=== PATIENT | female | born 1985 | race Caucasian/White ===

== ENCOUNTER 2017-05-30 07:37 | Emergency (ER) | payer MEDICAID ==
[~2017-05-30] VITALS: Ht 167.6 cm; Wt 80.0 kg
[~2017-05-30 07:37] MED LIST: OXYC1SOL5 PO; RANI150 PO
[2017-05-30 07:38] VITALS: BP 147/97; PULSE 111; RESP 14; TEMP 99; O2SAT 95
[2017-05-30] MEDS ORDERED: IOHEXOL 350 MG/ML 10 ML VIAL (for RAD DIAG) IVCONTRAST ONE (07:38)
[2017-05-30] MEDS ORDERED: SUCR1TAB PO (07:49)
[2017-05-30] MEDS ORDERED: OMEP20TA PO (07:49)
[2017-05-30] MEDS ORDERED: SODIUM CHLORIDE 0.9% FLUSH 10 ML FLUSH IV FLUSH PRN (08:00)
--- NOTE | 2017-05-30 08:07 | PD ---
HPI Chief Complaint: GI Complaint Time Seen by Provider: 08:04 Travel History International Travel<30 days: No Contact w/Intl Traveler<30days: No Traveled to known affect area: No History of Present Illness HPI 31-year-old female patient with history of no significant past issues, presents to the ER today with nausea, vomiting, diarrhea starting yesterday. She states she has been having abdominal cramping pains which is more in the lower abdomen. Pain is currently measured a 9 out of 10. She denies any fevers, blood in the stools, or other issues. She is also not know of any sick contacts , bad food exposure, denies trouble. Modifying Factors: None Associated Signs & Symptoms: Abdominal pains, nausea, vomiting since yesterday Risk Factors: None PFSH Past Medical History Anemia: Yes Depression: Yes Cancer: No Cardiovascular Problems: No Diabetes: No Gastrointestinal Disorders: Yes GERD: Yes Glaucoma: No Hepatitis: No Hiatal Hernia: No Hypertension: No Respiratory: No Thyroid Disease: No Tetanus Vaccination: < 5 Years ?: Not LMP: 05/27/17 : 1 Para: 1 Past Surgical History Section: Yes Other Surgery: Yes Social History Alcohol Use: Yes (OCCASSIONAL) Tobacco Use: Yes (OCCASSIONAL) Substance Use: Yes (MARIJUANA) Allergies-Medications (Allergen,Severity, Reaction): Coded Allergies: No Known Allergies (Verified , 05/30/17) Reported Meds & Prescriptions Reported Meds & Active Scripts Active Reported Omeprazole 20 Mg Tab 20 Mg PO DAILY Sucralfate 1 Gram Tab 1 Gm PO TID on empty stomach Review of Systems Except as stated in HPI: all other systems reviewed are Neg Physical Exam Narrative GENERAL: Well-developed young white female patient currently in moderate distress. Awake and oriented 3. SKIN: Focused skin assessment warm/dry. HEAD: Atraumatic. Normocephalic. EYES: Pupils equal and round. No scleral icterus. No injection or drainage. ENT: No nasal bleeding or discharge. Mucous membranes pink and moist. NECK: Trachea midline. No JVD. CARDIOVASCULAR: Regular rate and rhythm. No murmur appreciated. RESPIRATORY: No accessory muscle use. Clear to auscultation. Breath sounds equal bilaterally. GASTROINTESTINAL: Abdomen soft, diffuse abdominal tenderness without guarding or rebound, nondistended. Hepatic and splenic margins not palpable. MUSCULOSKELETAL: No obvious deformities. No clubbing. No cyanosis. No edema. NEUROLOGICAL: Awake and alert. No obvious cranial nerve deficits. Motor grossly within normal limits. Normal speech. PSYCHIATRIC: Appropriate mood and affect; insight and judgment normal. Data Data Last Documented VS Vital Signs Date Time Temp Pulse Resp B/P (MAP) Pulse Ox O2 Delivery O2 Flow Rate FiO2 05/30/17 08:24 99 05/30/17 07:38 99.0 111 14 Orders Orders Complete Blood Count With Diff (05/30/17 07:59) Comprehensive Metabolic Panel (05/30/17 07:59) Lipase (05/30/17 07:59) Urinalysis - C+S If Indicated (05/30/17 07:59) Iv Access Insert/Monitor (05/30/17 07:59) Ecg Monitoring (05/30/17:59) Oximetry (05/30/17 07:59) Sodium Chloride 0.9% Flush (Ns Flush) (05/30/17 08:00) Ed Urine Pregnancytest Poc (05/30/17 07:59) Sodium Chlor 0.9% 1000 Ml Inj (Ns 1000 M (05/30/17 08:15) Dicyclomine Inj (Bentyl Inj) (05/30/17 08:15) Ondansetron Inj (Zofran Inj) (05/30/17 08:15) Morphine Inj (Morphine Inj) (05/30/17 09:00) Ct Abd/Pel W Iv Contrast(Rout) (05/30/17 09:18) Urine Culture (05/30/17 08:00) Iohexol 350 Inj (Omnipaque 350 Inj) (05/30/17 07:38) Labs Laboratory Tests Test 05/30/17 08:00 05/30/17 08:05 Urine Color YELLOW Urine Turbidity HAZY Urine pH 6.0 Urine Specific [place] 1.030 Urine Protein 30 mg/dL Urine Glucose (UA) NEG mg/dL Urine Ketones 10 mg/dL Urine Occult Blood LARGE Urine Nitrite NEG Urine Bilirubin NEG Urine Urobilinogen LESS THAN 2.0 MG/DL Urine Leukocyte Esterase TRACE Urine RBC 42 /hpf Urine WBC 45 /hpf Urine Squamous Epithelial Cells 1 /hpf Urine Bacteria FEW /hpf Urine Mucus FEW /lpf Microscopic Urinalysis Comment CULTURE INDICATED White Blood Count 18.8 TH/MM3 Red Blood Count 4.65 MIL/MM3 Hemoglobin 13.7 GM/DL Hematocrit 41.3 % Mean Corpuscular Volume 88.9 FL Mean Corpuscular Hemoglobin 29.5 PG Mean Corpuscular Hemoglobin Concent 33.2 % Red Cell Distribution Width 12.8 % Platelet Count 155 TH/MM3 Mean Platelet Volume 8.2 FL Neutrophils (%) (Auto) 95.0 % Lymphocytes (%) (Auto) 3.4 % Monocytes (%) (Auto) 1.5 % Eosinophils (%) (Auto) 0.0 % Basophils (%) (Auto) 0.1 % Neutrophils # (Auto) 17.9 TH/MM3 Lymphocytes # (Auto) 0.6 TH/MM3 Monocytes # (Auto) 0.3 TH/MM3 Eosinophils # (Auto) 0.0 TH/MM3 Basophils # (Auto) 0.0 TH/MM3 CBC Comment DIFF FINAL Differential Comment Blood Urea Nitrogen 9 MG/DL Creatinine 0.61 MG/DL Random Glucose 116 MG/DL Total Protein 7.7 GM/DL Albumin 3.8 GM/DL Calcium Level 9.4 MG/DL Alkaline Phosphatase 56 U/L Aspartate Amino Transf (AST/SGOT) 15 U/L Alanine Aminotransferase (ALT/SGPT) 25 U/L Total Bilirubin 1.5 MG/DL Sodium Level 133 MEQ/L Potassium Level 3.0 MEQ/L Chloride Level 98 MEQ/L Carbon Dioxide Level 21.8 MEQ/L Anion Gap 13 MEQ/L Estimat Glomerular Filtration Rate 114 ML/MIN Lipase 41 U/L MDM Medical Decision Making Medical Screen Exam Complete: Yes Emergency Medical Condition: Yes Medical Record Reviewed: Yes Interpretation(s) Laboratory Tests Test 05/30/17 08:00 05/30/17 08:05 Urine Turbidity HAZY (CLEAR) Urine Protein 30 mg/dL (NEG-TRACE) Urine Ketones 10 mg/dL (NEG) Urine Occult Blood LARGE (NEG) Urine Leukocyte Esterase TRACE (NEG) Urine RBC 42 /hpf (0-3) Urine WBC 45 /hpf (0-5) Urine Bacteria FEW /hpf (NONE) Urine Mucus FEW /lpf (OCC) White Blood Count 18.8 TH/MM3 (4.0-11.0) Neutrophils (%) (Auto) 95.0 % (16.0-70.0) Lymphocytes (%) (Auto) 3.4 % (9.0-44.0) Neutrophils # (Auto) 17.9 TH/MM3 (1.8-7.7) Lymphocytes # (Auto) 0.6 TH/MM3 (1.0-4.8) Random Glucose 116 MG/DL (74-106) Total Bilirubin 1.5 MG/DL (0.2-1.0) Sodium Level 133 MEQ/L (136-145) Potassium Level 3.0 MEQ/L (3.5-5.1) Lipase 41 U/L (73-393) Last 24 hours Impressions Abdomen/Pelvis CT 05/30/17 0918 Signed Impressions: Service Date/Time: Tuesday, May 30, 2017 10:58 - CONCLUSION: 1. No acute abnormality to explain the patient's pain. 2. Prior cholecystectomy. 3. IUD. Saurabh Tom Jr., MD Differential Diagnosis Nausea, vomiting, diarrhea, abdominal pains: Gastroenteritis versus dehydration versus metabolic issues Narrative Course Lab work shows hypokalemia. She has significant leukocytosis as well. CAT scan was done to evaluate for any further intra-abdominal processes. It did not show significant intra-abdominal processes at that time. Patient was given IV fluids, pain medications and nausea medications in the ER. She had no further vomiting episodes in the ER. At this point, I do not see any signs of other acute processes and my plan would be to release her with her symptomatic relief for nausea and vomiting as well as potassium for her hypokalemia. Return for any worsening in symptoms as needed. The plan has been discussed with her and she states understanding. Diagnosis Primary Impression: Nausea and vomiting Additional Impressions: Hypokalemia UTI (urinary tract infection) Med/Other Pt SpecificInfo: Prescription(s) given Scripts Potassium Chloride ER (K-Tab) 20 Meq Tab 40 MEQ PO DAILY for Electrolyte Replacement, #10 TAB 0 Refills Prov: Edmar Cesar MD 05/30/17 Ondansetron Odt (Zofran Odt) 4 Mg Tab 4 MG SL Q6HR Y for Nausea/Vomiting, #7 TAB 0 Refills Prov: Edmar Cesar MD 05/30/17 Ciprofloxacin (Cipro) 500 Mg Tab 500 MG PO BID for Infection for 7 Days, #14 TAB 0 Refills Prov: Edmar Cesar MD 05/30/17 Disposition: 01 DISCHARGE HOME Condition: Stable Edmar Cesar MD May 30, 2017 08:07
[2017-05-30] MEDS ORDERED: ONDANSETRON HCL 4 MG/2 ML VIAL IV PUSH ONE (08:15)
[2017-05-30] MEDS ORDERED: DICYCLOMINE HCL 20 MG/2 ML VIAL IM ONE (08:15)
[2017-05-30] MEDS ORDERED: SODIUM CHLOR 0.9% 1000 ML INJ 1,000 ML IV ONE (08:15)
[2017-05-30 08:24] VITALS: O2SAT 99
[2017-05-30] MEDS ORDERED: MORPHINE SULFATE 2 MG/ML INJ IV PUSH ONE (09:00)
[2017-05-30 09:02] LABS: AUTOMATED NEUTROPHIL # 17.9 TH/MM3 (1.8-7.7); BASOPHIL % 0.1 % (0.0-2.0); HEMATOCRIT 41.3 % (35.0-46.0); HEMO FLAGS DIFF FINAL; LYMPH % 3.4 % (9.0-44.0); LYMPHOCYTE # 0.6 TH/MM3 (1.0-4.8); MEAN CELL VOLUME 88.9 FL (80.0-100.0); MEAN CORPUSCULAR HEMOGLOBIN 29.5 PG (27.0-34.0); MEAN CORPUSCULAR HGB CONC 33.2 % (32.0-36.0); MONO % 1.5 % (0.0-8.0); PLATELET COUNT 155 TH/MM3 (150-450); RED BLOOD COUNT 4.65 MIL/MM3 (4.00-5.30); RED CELL DISTRIBUTION WIDTH 12.8 % (11.6-17.2); WHITE BLOOD COUNT 18.8 TH/MM3 (4.0-11.0)
[2017-05-30 09:16] LABS: ANION GAP 13 MEQ/L (5-15); AST (GOT) 15 U/L (15-37); BICARBONATE 21.8 MEQ/L (21.0-32.0); BLOOD UREA NITROGEN 9 MG/DL (7-18); CHLORIDE 98 MEQ/L (98-107); GLOMERULAR FILTRATION RATE 114 ML/MIN (>89); SODIUM (NA) 133 MEQ/L (136-145)
[2017-05-30 09:17] LABS: ALT (GPT) 25 U/L (10-53)
[2017-05-30 09:20] LABS: ALKALINE PHOSPHATASE 56 U/L (45-117); TOTAL BILIRUBIN ADULT 1.5 MG/DL (0.2-1.0)
[2017-05-30 09:35] LABS: BACTERIA, URINE FEW /hpf; BLOOD, URINE LARGE (NEG); COMMENT (UR) CULTURE INDICATED; CULTURE IF INDICATED CULTURE INDICATED; GLUCOSE,URINE NEG (NEG); KETONE, URINE 10 mg/dL (NEG); MUCUS URINE FEW /lpf (OCC); NITRITE,URINE NEG (NEG); SQUAMOUS EPITHELIAL CELL URINE 1 /hpf (0-5); URINE COLOR YELLOW (YELLW/STRAW)
--- NOTE | 2017-05-30 11:24 | RADRPT ---
EXAM DATE/TIME: 05/30/2017 10:58 [facility] COMPARISON: No previous studies available for comparison. INDICATIONS : Diffuse abdomen pain nausea,vomiting,diarrhea IV CONTRAST: 90 cc Omnipaque 350 (iohexol) IV ORAL CONTRAST: No oral contrast ingested. RADIATION DOSE: 10.49 CTDIvol (mGy) MEDICAL HISTORY : None SURGICAL HISTORY : None. ENCOUNTER: Initial ACUITY: 1 day PAIN SCALE: 8/10 LOCATION: Abdomen TECHNIQUE: Volumetric scanning of the abdomen and pelvis was performed. Using automated exposure control and ad justment of the mA and/or kV according to patient size, radiation dose was kept as low as reasonably achievable to obtain optimal diagnostic quality images. DICOM format image data is available electro nically for review and comparison. FINDINGS: LOWER LUNGS: The visualized lower lungs are clear. LIVER: Homogeneous density without lesion. There is no dilation of the biliary tree. The gallbladder is isabelle gically absent. SPLEEN: Normal size without lesion. PANCREAS: Within normal limits. KIDNEYS: Normal in size and shape. There is no mass, stone or hydronephrosis. A 1 cm cortical cyst is seen in volving the upper pole on the right. ADRENAL GLANDS: Within normal limits. VASCULAR: There is no aortic aneurysm. BOWEL/MESENTERY: The stomach, small bowel, and colon demonstrate no acute abnormality. There is no free intraperitone al air or fluid. ABDOMINAL WALL: Within normal limits. RETROPERITONEUM: There is no lymphadenopathy. BLADDER: No wall thickening or mass. REPRODUCTIVE: Within normal limits. An IUD is noted. INGUINAL: There is no lymphadenopathy or hernia. MUSCULOSKELETAL: Within normal limits for patient age. CONCLUSION: 1. No acute abnormality to explain the patient's pain. 2. Prior cholecystectomy. 3. IUD. Saurabh Tom Jr., MD on May 30, 2017 at 11:19 Board Certified Radiologist. This report was verified electronically.
[2017-05-30] MEDS ORDERED: ZOFR4TAB3 SL (12:03)
[2017-05-30] MEDS ORDERED: POTA1TAB4 PO (12:03)
[2017-05-30] MEDS ORDERED: CIPR-9 PO (12:03)
== END 2017-05-30 12:34 | disposition home or self-care (01) ==
LOC: NEPC 07:37
DX: R11.2 Nausea with vomiting, unspecified (principal); E87.6 Hypokalemia; N39.0 Urinary tract infection, site not specified; K21.9 Gastro-esophageal reflux disease without esophagitis; R19.7 Diarrhea, unspecified
CPT/HCPCS: 74177; 80053; 81001; 83690; 84703; 85025; 87086; 96361; 96372; 96374; 96375; 99285; J0500; J2270; J2405; J7030; Q9967

== ENCOUNTER 2017-06-01 04:08 | Emergency (ER) | payer MEDICAID ==
[~2017-06-01] VITALS: Ht 167.6 cm; Wt 76.2 kg
[~2017-06-01 04:08] MED LIST changes: +CIPR-9 PO; +OMEP20TA PO; +POTA1TAB4 PO; +SUCR1TAB PO; +ZOFR4TAB3 SL
[2017-06-01 04:15] VITALS: BP 153/97; PULSE 74; RESP 18; TEMP 99; O2SAT 97
[2017-06-01] MEDS ORDERED: SODIUM CHLOR 0.9% 1000 ML INJ 1,000 ML IV SCH (04:27)
[2017-06-01] MEDS ORDERED: ONDANSETRON HCL 4 MG/2 ML VIAL IVP ONE (04:30)
[2017-06-01] MEDS ORDERED: SODIUM CHLORIDE 0.9% FLUSH 10 ML FLUSH IV FLUSH PRN (04:30)
[2017-06-01] MEDS ORDERED: METOCLOPRAMIDE HCL 10 MG/2 ML VIAL IV PUSH ONE (04:45)
[2017-06-01 04:48] LABS: AUTOMATED NEUTROPHIL # 14.9 TH/MM3 (1.8-7.7); BASOPHIL % 0.2 % (0.0-2.0); EOSINOPHIL # 0.3 TH/MM3 (0-0.4); EOSINOPHIL % 1.7 % (0.0-4.0); HEMATOCRIT 41.6 % (35.0-46.0); HEMO FLAGS DIFF FINAL; LYMPH % 7.5 % (9.0-44.0); LYMPHOCYTE # 1.2 TH/MM3 (1.0-4.8); MEAN CELL VOLUME 86.8 FL (80.0-100.0); MEAN CORPUSCULAR HEMOGLOBIN 28.5 PG (27.0-34.0); MEAN CORPUSCULAR HGB CONC 32.9 % (32.0-36.0); NEUT % 89.6 % (16.0-70.0); PLATELET COUNT 202 TH/MM3 (150-450); RED CELL DISTRIBUTION WIDTH 12.1 % (11.6-17.2); WHITE BLOOD COUNT 16.6 TH/MM3 (4.0-11.0)
[2017-06-01 05:00] VITALS: BP 152/98; PULSE 64; RESP 18; O2SAT 98
[2017-06-01 05:13] LABS: ALKALINE PHOSPHATASE 71 U/L (45-117); ALT (GPT) 19 U/L (10-53); ANION GAP 10 MEQ/L (5-15); AST (GOT) 9 U/L (15-37); BICARBONATE 25.4 MEQ/L (21.0-32.0); BLOOD UREA NITROGEN 11 MG/DL (7-18); CHLORIDE 96 MEQ/L (98-107); GLOMERULAR FILTRATION RATE 102 ML/MIN (>89); SODIUM (NA) 131 MEQ/L (136-145); TOTAL BILIRUBIN ADULT 0.5 MG/DL (0.2-1.0)
[2017-06-01] MEDS ORDERED: PROMETHAZINE INJ 25 MG/ML VIAL IM ONE (05:15)
[2017-06-01] MEDS ORDERED: MORPHINE SULFATE 4 MG/ML INJ IV PUSH ONE (05:15)
[2017-06-01 05:16] LABS: POTASSIUM 2.8 MEQ/L (3.5-5.1)
--- NOTE | 2017-06-01 05:23 | PD ---
HPI Chief Complaint: GI Complaint Time Seen by Provider: 04:44 Travel History International Travel<30 days: No Contact w/Intl Traveler<30days: No Traveled to known affect area: No History of Present Illness HPI 31-year-old female presents to the emergency department by private transportation for complaint of ongoing nausea vomiting diarrhea and abdominal pain. Patient also reports fever 102 F. Patient states symptoms have been present since Sunday. Patient states symptoms began as lower abdominal discomfort and developed subsequently nausea vomiting and diarrhea. Patient was seen in the emergency department on Sunday and had lab work performed as well as a CT abdomen and pelvis which revealed no acute intra-abdominal abnormalities. Patient was identified at that time to have abnormal urinalysis and started on Cipro Floxin for urinary tract infection. Patient denies headache sore throat sinus pressure drainage earache neck pain cough congestion shortness of breath chest pain dysuria frequency urgency maturity flank pain and states that vomiting is not associated with coffee-ground emesis hematemesis and stool is not associated melena or hematochezia. Patient denies any dietary indiscretion or well water ingestion or foreign travel. Patient denies other concerns or complaints at this time. Patient rates overall body aches and pains, takes any PFSH Past Medical History Narrative Medical Anemia depression GERD cholecystectomy; tobacco use alcohol use marijuana use and: Nursing notes reviewed Anemia: Yes Depression: Yes Cancer: No Cardiovascular Problems: No Diabetes: No Diminished Hearing: No Gastrointestinal Disorders: Yes GERD: Yes Glaucoma: No Hepatitis: No Hiatal Hernia: No Hypertension: No Respiratory: No Thyroid Disease: No Tetanus Vaccination: < 5 Years Influenza Vaccination: No ?: Not LMP: 05/31/17 : 1 Para: 1 Past Surgical History Section: Yes Cholecystectomy: Yes Other Surgery: Yes Social History Alcohol Use: Yes (OCCASSIONAL) Tobacco Use: Yes (OCCASSIONAL) Substance Use: Yes (MARIJUANA) Allergies-Medications (Allergen,Severity, Reaction): Coded Allergies: No Known Allergies (Verified , 06/01/17) Reported Meds & Prescriptions Reported Meds & Active Scripts Active Zofran Odt (Ondansetron Odt) 4 Mg Tab 4 Mg SL Q6HR PRN Cipro (Ciprofloxacin HCl) 500 Mg Tab 500 Mg PO BID 7 Days Reported Omeprazole 20 Mg Tab 20 Mg PO DAILY Sucralfate 1 Gram Tab 1 Gm PO TID on empty stomach Review of Systems Except as stated in HPI: all other systems reviewed are Neg General / Constitutional: Positive: Fever, No: Chills HENT: No: Sore Throat, Congestion Cardiovascular: No: Chest Pain or Discomfort Respiratory: No: Shortness of Breath Gastrointestinal: Positive: Nausea, Vomiting, Diarrhea, Abdominal Pain, No: Hematemesis, Hematochezia Genitourinary: No: Urgency, Frequency, Dysuria, Flank Pain Musculoskeletal: No: Myalgias, Arthralgias Skin: No Rash Neurologic: No: Weakness, Dizziness Psychiatric: No: Anxiety Hematologic/Lymphatic: No: Lymph Node Enlargement Physical Exam Narrative GENERAL: Well-developed well-nourished female in no acute distress no respiratory distress SKIN: Warm and dry. HEAD: Normocephalic. EYES: No scleral icterus. No injection or drainage. NECK: Supple, trachea midline. No JVD or lymphadenopathy. CARDIOVASCULAR: Regular rate and rhythm without murmurs, gallops, or rubs. RESPIRATORY: Breath sounds equal bilaterally. No accessory muscle use. GASTROINTESTINAL: Abdomen soft, mild suprapubic tenderness to deep palpation without guarding or rebound, nondistended. MUSCULOSKELETAL: No cyanosis, or edema. BACK: Nontender without obvious deformity. No CVA tenderness. Data Data Last Documented VS Vital Signs Date Time Temp Pulse Resp B/P (MAP) Pulse Ox O2 Delivery O2 Flow Rate FiO2 06/01/17 06:08 18 06/01/17 05:00 98 Room Air 06/01/17 04:15 99.0 74 Orders Orders Complete Blood Count With Diff (06/01/17 04:27) Comprehensive Metabolic Panel (06/01/17 04:27) Lipase (06/01/17 04:27) Iv Access Insert/Monitor (06/01/17 04:27) Ecg Monitoring (06/01/17 04:27) Oximetry (06/01/17 04:27) Ondansetron Inj (Zofran Inj) (06/01/17 04:30) Sodium Chlor 0.9% 1000 Ml Inj (Ns 1000 M (06/01/17 04:27) Sodium Chloride 0.9% Flush (Ns Flush) (06/01/17 04:30) Electrocardiogram (06/01/17 04:27) Ed Urine Pregnancytest Poc (06/01/17 04:27) Metoclopramide Inj (Reglan Inj) (06/01/17 04:45) Blood Culture (06/01/17 05:10) Lactic Acid (06/01/17 05:10) Promethazine Inj (Phenergan Inj) (06/01/17 05:15) Morphine Inj (Morphine Inj) (06/01/17 05:15) Potassium Chlor 10 Meq Premix (Kcl 10 Me (06/01/17 05:30) Potassium Chloride (Kcl) (06/01/17 05:30) Ceftriaxone Inj (Rocephin Inj) (06/01/17 05:30) Labs Laboratory Tests Test 06/01/17 04:30 06/01/17 05:15 White Blood Count 16.6 TH/MM3 Red Blood Count 4.80 MIL/MM3 Hemoglobin 13.7 GM/DL Hematocrit 41.6 % Mean Corpuscular Volume 86.8 FL Mean Corpuscular Hemoglobin 28.5 PG Mean Corpuscular Hemoglobin Concent 32.9 % Red Cell Distribution Width 12.1 % Platelet Count 202 TH/MM3 Mean Platelet Volume 8.3 FL Neutrophils (%) (Auto) 89.6 % Lymphocytes (%) (Auto) 7.5 % Monocytes (%) (Auto) 1.0 % Eosinophils (%) (Auto) 1.7 % Basophils (%) (Auto) 0.2 % Neutrophils # (Auto) 14.9 TH/MM3 Lymphocytes # (Auto) 1.2 TH/MM3 Monocytes # (Auto) 0.2 TH/MM3 Eosinophils # (Auto) 0.3 TH/MM3 Basophils # (Auto) 0.0 TH/MM3 CBC Comment DIFF FINAL Differential Comment Blood Urea Nitrogen 11 MG/DL Creatinine 0.67 MG/DL Random Glucose 99 MG/DL Total Protein 8.2 GM/DL Albumin 3.3 GM/DL Calcium Level 9.2 MG/DL Alkaline Phosphatase 71 U/L Aspartate Amino Transf (AST/SGOT) 9 U/L Alanine Aminotransferase (ALT/SGPT) 19 U/L Total Bilirubin 0.5 MG/DL Sodium Level 131 MEQ/L Potassium Level 2.8 MEQ/L Chloride Level 96 MEQ/L Carbon Dioxide Level 25.4 MEQ/L Anion Gap 10 MEQ/L Estimat Glomerular Filtration Rate 102 ML/MIN Lipase 107 U/L Lactic Acid Level 1.1 mmol/L [facility] Medical Decision Making Medical Screen Exam Complete: Yes Emergency Medical Condition: Yes Medical Record Reviewed: Yes Differential Diagnosis Vomiting, gastroenteritis, dehydration, electrolyte disturbance, medication sensitivities/intolerance, noncompliance, intractable nausea and vomiting Narrative Course Patient placed on school lunch monitor IV access obtained EKG performed sinus rhythm rate [address] elevation or injury pattern change noted patient is identified to have right ventricular conduction delay; patient administered normal saline 1 L bolus and Zofran 4 mg IV ordered however reports that she has already taken 2 doses of Zofran therefore Zofran canceled and Reglan 10 mg IV administered Patient with ongoing nausea and vomiting therefore Phenergan 25 mg IM administered Patient identified to have hypokalemia of 2.8 patient ordered 1 dose of KCl 10 mEq replacement IV piggyback as well as one-time dose of oral potassium 40 mEq CBC is automated differential total white cell count 16,600 with left shift however lactic acid is 1.1. She is afebrile in the emergency department without tachycardia or hypotension. At 5:55 AM patient resting comfortably no further nausea or vomiting patient lab values have shown evidence of improvement except for hypokalemia. Sepsis Criteria SIRS Criteria (2 or more): WBC > 99722, < 4000 or > 10% bands Diagnosis Primary Impression: Gastroenteritis Additional Impression: Hypokalemia Referrals: [facility] call for appointment Primary Care Physician 2 days Patient Instructions: Narcotic given in the ED, General Instructions Additional Instructions: Follow clear liquid diet for next 12-24 hours advance as tolerated to bland/ Ben diet then regular diet Increase potassium containing foods and beverages in dietary intake Monitor temperature every 4 hours with thermometer and take as needed acetaminophen/Tylenol every 4 hours for fever 100.4F or greater Take Phenergan as prescribed as needed for nausea or vomiting or for breakthrough nausea vomiting after Zofran Complete course of antibiotic as prescribed Return to the emergency department for any concerns or change in condition follow-up with primary care provider/was evaluated Med/Other Pt SpecificInfo: Prescription(s) given Disposition: 01 DISCHARGE HOME Condition: Stable Kiana Vee MD Jun 01, 2017 05:23
[2017-06-01] MEDS ORDERED: POTASSIUM CHLORIDE 20 MEQ CONTROLLED RELEASE TAB PO ONE (05:30)
[2017-06-01] MEDS ORDERED: POTASSIUM CHLOR 10 MEQ PREMIX 100 ML IV ONE (05:30)
[2017-06-01] MEDS ORDERED: cefTRIAXone INJ 1,000 MG in SODIUM CHLORIDE 0.9% INJ 100 ML IV ONE (05:30)
[2017-06-01 05:45] VITALS: BP 146/89; PULSE 64; RESP 18; TEMP 99; O2SAT 96
[2017-06-01 06:45] VITALS: BP 127/74; PULSE 62; RESP 18; O2SAT 95
[2017-06-01] MEDS ORDERED: PROM25TA10 PO (07:16)
[2017-06-01 07:26] VITALS: BP 120/76; PULSE 62; RESP 16; O2SAT 100
--- NOTE | 2017-06-01 08:59 | EKG ---
Date Performed: 06/01/2017 Time Performed: 04:36:53 PTAGE: 31 years EKG: Sinus rhythm WITH SINUS ARRHYTHMIA POSSIBLE RIGHT VENTRICULAR CONDUCTION DELAY BORDERLINE ECG NO PREVIOUS TRACING DOCTOR: Servando Smith Interpretating Date/Time 06/01/2017 08:57:46
== END 2017-06-01 07:42 | disposition home or self-care (01) ==
LOC: PHED 04:08
DX: K52.9 Noninfective gastroenteritis and colitis, unspecified (principal); E87.6 Hypokalemia; D64.9 Anemia, unspecified; R94.31 Abnormal electrocardiogram [ECG] [EKG]; Z72.0 Tobacco use
CPT/HCPCS: 80053; 83605; 83690; 84703; 85025; 87040; 93005; 96361; 96365; 96367; 96372; 96375; 99284; J0696; J2270; J2550; J2765; J3480; J7030

== ENCOUNTER 2017-06-03 10:07 | Inpatient (IN) | payer MEDICAID ==
[~2017-06-03] VITALS: Ht 170.2 cm; Wt 83.1 kg
[~2017-06-03 10:07] MED LIST changes: -OXYC1SOL5 PO; -POTA1TAB4 PO; +PROM25TA10 PO; -RANI150 PO
[2017-06-03 10:14] VITALS: BP 167/89; PULSE 59; RESP 16; TEMP 98.6; O2SAT 100
[2017-06-03] MEDS ORDERED: diphenhydrAMINE HCL 50 MG/ML VIAL IV PUSH ONE (11:00)
[2017-06-03] MEDS ORDERED: SODIUM CHLOR 0.9% 1000 ML INJ 1,000 ML IV SCH (11:00)
[2017-06-03] MEDS ORDERED: PROCHLORPERAZINE INJ 10 MG/2 ML VIAL IV PUSH ONE (11:00)
[2017-06-03 11:02] LABS: AUTOMATED NEUTROPHIL # 8.6 TH/MM3 (1.8-7.7); BASOPHIL % 0.3 % (0.0-2.0); EOSINOPHIL # 0.1 TH/MM3 (0-0.4); EOSINOPHIL % 1.3 % (0.0-4.0); HEMATOCRIT 38.8 % (35.0-46.0); LYMPH % 11.5 % (9.0-44.0); LYMPHOCYTE # 1.2 TH/MM3 (1.0-4.8); MEAN CELL VOLUME 87.4 FL (80.0-100.0); MEAN CORPUSCULAR HEMOGLOBIN 29.4 PG (27.0-34.0); MEAN CORPUSCULAR HGB CONC 33.7 % (32.0-36.0); MONO % 6.1 % (0.0-8.0); NEUT % 80.8 % (16.0-70.0); PLATELET COUNT 254 TH/MM3 (150-450); RED BLOOD COUNT 4.45 MIL/MM3 (4.00-5.30); RED CELL DISTRIBUTION WIDTH 12.1 % (11.6-17.2); WHITE BLOOD COUNT 10.6 TH/MM3 (4.0-11.0)
[2017-06-03 11:05] VITALS: BP 148/73; PULSE 62; RESP 16; O2SAT 99
[2017-06-03 11:05] LABS: HEMO FLAGS AUTO DIFF
[2017-06-03 11:11] LABS: CHLORIDE 103 MEQ/L (98-107); POTASSIUM 3.1 MEQ/L (3.5-5.1); SODIUM (NA) 141 MEQ/L (136-145)
[2017-06-03 11:15] LABS: ANION GAP 7 MEQ/L (5-15); BICARBONATE 31.1 MEQ/L (21.0-32.0); BLOOD UREA NITROGEN 8 MG/DL (7-18)
[2017-06-03 11:18] LABS: ALT (GPT) 20 U/L (10-53); AST (GOT) 12 U/L (15-37); GLOMERULAR FILTRATION RATE 112 ML/MIN (>89)
[2017-06-03 11:19] LABS: TOTAL BILIRUBIN ADULT 0.4 MG/DL (0.2-1.0)
[2017-06-03 11:21] LABS: ALKALINE PHOSPHATASE 62 U/L (45-117)
[2017-06-03] MEDS ORDERED: ONDANSETRON HCL 4 MG/2 ML VIAL IV ONE (11:30)
[2017-06-03 11:46] LABS: SCAN/DIFF AUTO DIFF CONFIRMED
--- NOTE | 2017-06-03 12:05 | PD ---
HPI Chief Complaint: GI Complaint Time Seen by Provider: 10:36 Travel History International Travel<30 days: No Contact w/Intl Traveler<30days: No Traveled to known affect area: No History of Present Illness HPI So 31 year-old woman who presents to the emergency department with nausea vomiting abdominal pain. She has a history of chronic abdominal pain with episodic nausea vomiting. She had her gallbladder taken out in February of this year and so she's been better since then. She's been seen twice earlier in the emergency department this week for recurrent symptoms. She was endorsing fever without point has had leukocytosis on both occasions. She had a negative CT the abdomen and pelvis. She had a urine that showed some pyuria and she's been treated for urinary tract infection with Cipro but her culture grew mixed gram- positive's. She's also had a , no other abdominal surgeries. She's been feeling more weak and lightheaded. She did have some low potassium on her more recent labs. She does not have a GI doctor. She uses Zofran and Phenergan as needed for nausea or vomiting. No other complaints. She does use marijuana daily, and has investigated marijuana hyperemesis syndrome as an etiology for her symptoms was a 16 with absence of symptoms not resolved. History Past Medical History Narrative Medical Chronic abdominal pain GERD Marijuana use : 1 Para: 1 Social History Alcohol Use: Yes (OCCASSIONAL) Tobacco Use: Yes (OCCASSIONAL) Allergies-Medications (Allergen,Severity, Reaction): Coded Allergies: No Known Allergies (Verified , 06/03/17) Reported Meds & Prescriptions Reported Meds & Active Scripts Active Phenergan (Promethazine HCl) 25 Mg Tablet 25 Mg PO Q6H PRN Zofran Odt (Ondansetron Odt) 4 Mg Tab 4 Mg SL Q6HR PRN Cipro (Ciprofloxacin HCl) 500 Mg Tab 500 Mg PO BID 7 Days Reported Omeprazole 20 Mg Tab 20 Mg PO DAILY Sucralfate 1 Gram Tab 1 Gm PO TID on empty stomach Review of Systems Except as stated in HPI: all other systems reviewed are Neg Physical Exam Narrative GENERAL: 31 year-old woman, frequent retching. Appears uncomfortable nontoxic. SKIN: Focused skin assessment warm/dry. HEAD: Atraumatic. Normocephalic. EYES: Pupils equal and round. No scleral icterus. No injection or drainage. ENT: No nasal bleeding or discharge. Mucous membranes pink and moist. NECK: Trachea midline. No JVD. CARDIOVASCULAR: Regular rate and rhythm. No murmur appreciated. RESPIRATORY: No accessory muscle use. Clear to auscultation. Breath sounds equal bilaterally. GASTROINTESTINAL: Abdomen is flat and soft. Moderate diffuse tenderness, no rebound or guarding. MUSCULOSKELETAL: No obvious deformities. No edema. NEUROLOGICAL: Awake and alert. No obvious cranial nerve deficits. Motor grossly within normal limits. Normal speech. PSYCHIATRIC: Appropriate mood and affect; insight and judgment normal. Data Data Last Documented VS Vital Signs Date Time Temp Pulse Resp B/P (MAP) Pulse Ox O2 Delivery O2 Flow Rate FiO2 06/03/17 12:30 16 06/03/17 12:15 51 185/89 (121) 100 Room Air 06/03/17 10:14 98.6 Orders Orders Complete Blood Count With Diff (06/03/17 10:49) Comprehensive Metabolic Panel (06/03/17 10:49) Lipase (06/03/17 10:49) Iv Access Insert/Monitor (06/03/17 10:49) Urinalysis - C+S If Indicated (06/03/17 10:49) Sodium Chlor 0.9% 1000 Ml Inj (Ns 1000 M (06/03/17 11:00) Prochlorperazine Inj (Compazine Inj) (06/03/17 11:00) Diphenhydramine Inj (Benadryl Inj) (06/03/17 11:00) Ondansetron Inj (Zofran Inj) (06/03/17 11:30) Ketorolac Inj (Toradol Inj) (06/03/17 12:30) Urine Culture (06/03/17 12:15) Ceftriaxone Inj (Rocephin Inj) (06/03/17 13:00) Urine Culture (06/03/17 12:49) Admit To Inpatient (06/03/17 ) Vital Signs (Adult) KAREN.Q4H (06/03/17 12:50) Activity Oob With Assistance (06/03/17 12:50) Sodium Chlor 0.45% 1000 Ml Inj (1/2 Ns 1 (06/03/17 12:50) Inpatient Certification (06/03/17 ) Admit Order (Ed Use Only) (06/03/17 ) Labs Laboratory Tests Test 06/03/17 10:30 06/03/17 12:15 White Blood Count 10.6 TH/MM3 Red Blood Count 4.45 MIL/MM3 Hemoglobin 13.1 GM/DL Hematocrit 38.8 % Mean Corpuscular Volume 87.4 FL Mean Corpuscular Hemoglobin 29.4 PG Mean Corpuscular Hemoglobin Concent 33.7 % Red Cell Distribution Width 12.1 % Platelet Count 254 TH/MM3 Mean Platelet Volume 7.7 FL Neutrophils (%) (Auto) 80.8 % Lymphocytes (%) (Auto) 11.5 % Monocytes (%) (Auto) 6.1 % Eosinophils (%) (Auto) 1.3 % Basophils (%) (Auto) 0.3 % Neutrophils # (Auto) 8.6 TH/MM3 Lymphocytes # (Auto) 1.2 TH/MM3 Monocytes # (Auto) 0.6 TH/MM3 Eosinophils # (Auto) 0.1 TH/MM3 Basophils # (Auto) 0.0 TH/MM3 CBC Comment AUTO DIFF Differential Comment AUTO DIFF CONFIRMED Blood Urea Nitrogen 8 MG/DL Creatinine 0.62 MG/DL Random Glucose 110 MG/DL Total Protein 7.5 GM/DL Albumin 3.1 GM/DL Calcium Level 8.7 MG/DL Alkaline Phosphatase 62 U/L Aspartate Amino Transf (AST/SGOT) 12 U/L Alanine Aminotransferase (ALT/SGPT) 20 U/L Total Bilirubin 0.4 MG/DL Sodium Level 141 MEQ/L Potassium Level 3.1 MEQ/L Chloride Level 103 MEQ/L Carbon Dioxide Level 31.1 MEQ/L Anion Gap 7 MEQ/L Estimat Glomerular Filtration Rate 112 ML/MIN Lipase 160 U/L Urine Collection Type CLEAN CATCH Urine Color ORANGE Urine Turbidity MOD Urine pH 5.5 Urine Specific [place] 1.024 Urine Protein 100 mg/dL Urine Glucose (UA) 100 mg/dL Urine Ketones NEG mg/dL Urine Occult Blood LARGE Urine Nitrite POS Urine Bilirubin NEG Urine Leukocyte Esterase TRACE Urine RBC 15-19 /hpf Urine WBC 9-14 /hpf Urine Squamous Epithelial Cells 6-8 /hpf Urine Calcium Oxalate Crystals MANY /hpf Urine Amorphous Sediment MOD Urine Bacteria FEW /hpf Microscopic Urinalysis Comment CULTURE INDICATED Urine Collection Time 1215 MDM Medical Decision Making Medical Screen Exam Complete: Yes Emergency Medical Condition: Yes Interpretation(s) LABS: CBC is unremarkable. CMP is unremarkable. Lipase is normal. UA was some hematuria and pyuria, positive nitrites. Differential Diagnosis Get her chronic abdominal pain, gastroenteritis, gastritis, marijuana hyperemesis syndrome, cyclic vomiting, IBD, IBS, other Narrative Course Medical decision making 31 year-old woman with acute on chronic abdominal pain with episodic nausea vomiting worse for the past week or so, reportedly recent fever leukocytosis to could suggest an infectious etiology however symptoms seem to be more persistent. She had negative CT imaging. UTI seems unlikely to be the cause of her symptoms. She is continuing Cipro. We'll recheck labs, IV fluids, antiemetics, reassess. FINAL: Intractable nausea vomiting. Unclear if her pyuria UTIs related or not. We'll plan on treatment. She still vomiting in the ED visit third ED visit for this. Will admit for supportive treatment. Diagnosis Primary Impression: Intractable nausea and vomiting Additional Impression: Pyuria Admitting Information Admitting Physician Requests: it Marlon Quiroga MD Jun 03, 2017 12:05
[2017-06-03 12:15] VITALS: BP 185/89; PULSE 51; RESP 16; O2SAT 100
[2017-06-03 12:18] LABS: BLOOD, URINE LARGE (NEG); GLUCOSE,URINE 100 mg/dL (NEG); KETONE, URINE NEG (NEG); NITRITE,URINE POS (NEG); PH, URINE 5.5 (5.0-8.5)
[2017-06-03 12:24] LABS: METHOD OF COLLECTION CLEAN CATCH; URINE COLOR ORANGE (YELLW/STRAW)
[2017-06-03 12:29] LABS: BACTERIA, URINE FEW /hpf; COMMENT (UR) CULTURE INDICATED; COMMENT2 (UR) MUCOUS PRESENT; CULTURE IF INDICATED CULTURE INDICATED; RBC, URINE 15-19 /hpf (0-3)
[2017-06-03 12:30] LABS: CALCIUM OXALATE CRYSTALS,URINE MANY /hpf
[2017-06-03] MEDS ORDERED: KETOROLAC TROMETHAMINE 30 MG/ML (IVP) VIAL IV PUSH ONE (12:30)
[2017-06-03] MEDS ORDERED: SODIUM CHLOR 0.45% 1000 ML INJ 1,000 ML IV SCH (12:50)
[2017-06-03] MEDS ORDERED: cefTRIAXone INJ 1,000 MG in SODIUM CHLORIDE 0.9% INJ 100 ML IV ONE (13:00)
[2017-06-03 14:04] VITALS: BP 154/99
--- NOTE | 2017-06-03 14:40 | HHI.HP ---
HPI [facility] Primary Care Physician No Primary Care Physician Admission Diagnosis intractable nausea vomiting, UTI Diagnoses: Chief Complaint: Severe nausea and vomiting and abdominal discomfort Travel History International Travel<30 Days: No Contact w/Intl Traveler <30 Da: No Traveled to Known Affected Are: No History of Present Illness 31 years old female with history of marijuana abuse presented to the ED with complaint of nausea vomiting and abdominal pain, pain is around 6 out of 10 mostly periumbilical, get worse with nausea and vomiting. No alleviating factor , no transfer, no fever or chills, semisoft stool. No diarrhea patient has been seen earlier twice in the emergency room this week for the same symptoms had a CT scan of the abdomen 4 days ago which was unremarkable patient has a positive UA for calcium oxalate and UTI. However recent urine culture showed mixed gram-positive surjit. Patient had a history of but no other abdominal surgery. She usually use Zofran and Phenergan as needed. Reported using marijuana yesterday prior to developing those symptoms. Review of Systems Except as stated in HPI: all other systems reviewed are Neg All systems reviewed and was positive for what is mentioned in history of present illness otherwise negative Past Family Social History Past Medical History History acute GI Allergies: Coded Allergies: No Known Allergies (Verified , 06/03/17) Family History Review with the patient,not aware of significant medical history runs in his family Social History Half pack per day tobacco, occasional alcohol, positive marijuana Physical Exam Vital Signs Vital Signs Date Time Temp Pulse Resp B/P (MAP) Pulse Ox O2 Delivery O2 Flow Rate FiO2 06/03/17 14:18 16 06/03/17 14:04 55 16 154/99 (117) 98 06/03/17 12:30 16 06/03/17 12:15 51 16 185/89 (121) 100 Room Air 06/03/17 11:05 62 16 148/73 (98) 99 Room Air 06/03/17 10:48 16 06/03/17 10:14 98.6 59 16 167/89 (115) 100 Physical Exam GENERAL: This is a well-nourished, well-developed patient, in no apparent distress. SKIN: No rashes, warm and dry HEAD: Atraumatic. Normocephalic. EYES: Pupils equal round and reactive. Extraocular motions intact. No scleral icterus. ENT: Nose without bleeding, or drainage, Airway patent. NECK: Trachea midline. Supple CARDIOVASCULAR: Regular rate and rhythm without murmurs, gallops, or rubs. RESPIRATORY: Fair air entry bilaterally. No wheezes, rales, or rhonchi. GASTROINTESTINAL: Abdomen soft, mild periumbilical tenderness, nondistended. Positive bowel sounds MUSCULOSKELETAL: Extremities without clubbing, cyanosis, or edema. Pedal pulses appreciated NEUROLOGICAL: Awake and alert. Moves all extremity. Normal speech.no focal neurological deficit Laboratory Laboratory Tests Test 06/03/17 10:30 06/03/17 12:15 White Blood Count 10.6 Red Blood Count 4.45 Hemoglobin 13.1 Hematocrit 38.8 Mean Corpuscular Volume 87.4 Mean Corpuscular Hemoglobin 29.4 Mean Corpuscular Hemoglobin Concent 33.7 Red Cell Distribution Width 12.1 Platelet Count 254 Mean Platelet Volume 7.7 Neutrophils (%) (Auto) 80.8 Lymphocytes (%) (Auto) 11.5 Monocytes (%) (Auto) 6.1 Eosinophils (%) (Auto) 1.3 Basophils (%) (Auto) 0.3 Neutrophils # (Auto) 8.6 Lymphocytes # (Auto) 1.2 Monocytes # (Auto) 0.6 Eosinophils # (Auto) 0.1 Basophils # (Auto) 0.0 CBC Comment AUTO DIFF Differential Comment AUTO DIFF CONFIRMED Blood Urea Nitrogen 8 Creatinine 0.62 Random Glucose 110 Total Protein 7.5 Albumin 3.1 Calcium Level 8.7 Alkaline Phosphatase 62 Aspartate Amino Transf (AST/SGOT) 12 Alanine Aminotransferase (ALT/SGPT) 20 Total Bilirubin 0.4 Sodium Level 141 Potassium Level 3.1 Chloride Level 103 Carbon Dioxide Level 31.1 Anion Gap 7 Estimat Glomerular Filtration Rate 112 Lipase 160 Urine Collection Type CLEAN CATCH Urine Color ORANGE Urine Turbidity MOD Urine pH 5.5 Urine Specific [place] 1.024 Urine Protein 100 Urine Glucose (UA) 100 Urine Ketones NEG Urine Occult Blood LARGE Urine Nitrite POS Urine Bilirubin NEG Urine Leukocyte Esterase TRACE Urine RBC 15-19 Urine WBC 9-14 Urine Squamous Epithelial Cells 6-8 Urine Calcium Oxalate Crystals MANY Urine Amorphous Sediment MOD Urine Bacteria FEW Microscopic Urinalysis Comment CULTURE INDICATED Urine Collection Time 1215 Date/Time Source Procedure Growth Status 06/03/17 13:45 Urine Catheterized Urine Urine Culture Pending Received Result Diagram: 06/03/17 1030 06/03/17 1030 Caprini VTE Risk Assessment Caprini Risk Assessment Model Point Value = 1 Point Value = 2 Point Value = 3 Point Value = 5 Age 41-60 Minor surgery BMI > 25 kg/m2 Swollen legs Varicose veins or History of unexplained or recurrent spontaneous Oral contraceptives or hormone replacement Sepsis (< 1 month) Serious lung disease, including pneumonia (< 1 month) Abnormal pulmonary function Acute myocardial infarction Congestive heart failure (< 1 month) History of inflammatory bowel disease Medical patient at bed rest Age 61-74 Arthroscopic surgery Major open surgery (> 45 min) Laparoscopic surgery (> 45 min) Malignancy Confined to bed (> 72 hours) Immobilizing plaster cast Central venous access Age >= 75 History of VTE Family history of VTE Factor V Leiden Prothrombin [id number] Lupus anticoagulant Anticardiolipin antibodies Elevated serum homocysteine Heparin-induced thrombocytopenia Other congenital or acquired thrombophilia Stroke (< 1 month) Elective arthroplasty Hip, pelvis, or leg fracture Acute spinal cord injury (< 1 month) Prophylaxis Regimen Total Risk Factor Score Risk Level Prophylaxis Regimen 0-1 Low Early ambulation 2 Moderate Order ONE of the following: *Sequential Compression Device (SCD) *Heparin 5000 units SQ BID 3-4 Higher Order ONE of the following medications: *Heparin 5000 units SQ TID *Enoxaparin/Lovenox 40 mg SQ daily (WT < 150 kg, CrCl > 30 mL/min) *Enoxaparin/Lovenox 30 mg SQ daily (WT < 150 kg, CrCl > 10-29 mL/min) *Enoxaparin/Lovenox 30 mg SQ BID (WT < 150 kg, CrCl > 30 mL/min) AND/OR *Sequential Compression Device (SCD) 5 or more Highest Order ONE of the following medications: *Heparin 5000 units SQ TID (Preferred with Epidurals) *Enoxaparin/Lovenox 40 mg SQ daily (WT < 150 kg, CrCl > 30 mL/min) *Enoxaparin/Lovenox 30 mg SQ daily (WT < 150 kg, CrCl > 10-29 mL/min) *Enoxaparin/Lovenox 30 mg SQ BID (WT < 150 kg, CrCl > 30 mL/min) AND *Sequential Compression Device (SCD) Assessment and Plan Assessment and Plan 31 years old female admitted with Refractory intractable nausea and vomiting Abdominal discomfort periumbilical UTI with positive calcium oxalate Elevated blood pressure Marijuana abuse DVT prophylaxis Plan: In light of unremarkable CT scan 4 days ago, I would think most likely the symptoms related to marijuana, however will monitor today will check CBC in a.m. , patient had cholecystectomy before, very unlikely appendicitis physical exam is negative. Anti-emetics and iv fluid Vasotec for elevated blood pressure She is on Rocephin for UTI Extensive counseling for marijuana abstinence DVT prophylaxis with ambulation and a SCD Angel Duran MD Jun 03, 2017 14:40
[2017-06-03 16:22] VITALS: BP 158/94; PULSE 51; RESP 16; TEMP 98.4; O2SAT 99
[2017-06-03] MEDS: NS + KCL 20 MEQ INJ 1,000 ML IV SCH (17:00)
[2017-06-03] MEDS ORDERED: PROMETHAZINE HCL 25 MG TAB PO PRN (17:00)
[2017-06-03] MEDS ORDERED: LACTULOSE SYRUP 20 GM/30 ML CUP PO PRN (17:15)
[2017-06-03] MEDS ORDERED: ACETAMINOPHEN 325 MG TAB PO PRN (17:15)
[2017-06-03] MEDS ORDERED: MAGNESIUM HYDROXIDE SUSP 30 ML CUP PO PRN (17:15)
[2017-06-03] MEDS ORDERED: SENNOSIDES 8.6 MG TAB PO PRN (17:15)
[2017-06-03] MEDS ORDERED: NALOXONE HCL 0.4 MG/ML AMP IV PUSH PRN (17:15)
[2017-06-03 20:00] VITALS: BP 142/87; PULSE 60; RESP 16; TEMP 98.9; O2SAT 95
[2017-06-03] MEDS: DOCUSATE SODIUM 50 MG/SENNA 8.6 MG TAB PO SCH (20:25)
[2017-06-03] MEDS: ONDANSETRON HCL 4 MG/2 ML VIAL IV PUSH PRN (20:25)
[2017-06-04] VITALS: BP 139/90; PULSE 70; RESP 16; TEMP 100.1; O2SAT 98
[2017-06-04] MEDS ORDERED: PROMETHAZINE HCL 25 MG SUPP RECTAL ONE (01:30)
[2017-06-04] MEDS: CALCIUM CARBONATE 500 MG CHEWABLE TAB CHEW PRN ×2 (01:43→21:18)
[2017-06-04] MEDS: NS + KCL 20 MEQ INJ 1,000 ML IV SCH ×3 (02:45→22:45)
[2017-06-04 05:50] LABS: AUTOMATED NEUTROPHIL # 6.1 TH/MM3 (1.8-7.7); BASOPHIL # 0.1 TH/MM3 (0-0.2); BASOPHIL % 0.7 % (0.0-2.0); EOSINOPHIL # 0.1 TH/MM3 (0-0.4); EOSINOPHIL % 0.7 % (0.0-4.0); HEMATOCRIT 34.3 % (35.0-46.0); HEMO FLAGS DIFF FINAL; LYMPH % 25.8 % (9.0-44.0); LYMPHOCYTE # 2.5 TH/MM3 (1.0-4.8); MEAN CELL VOLUME 87.2 FL (80.0-100.0); MEAN CORPUSCULAR HEMOGLOBIN 28.3 PG (27.0-34.0); MEAN CORPUSCULAR HGB CONC 32.4 % (32.0-36.0); MONO % 10.3 % (0.0-8.0); NEUT % 62.5 % (16.0-70.0); PLATELET COUNT 235 TH/MM3 (150-450); RED BLOOD COUNT 3.93 MIL/MM3 (4.00-5.30); RED CELL DISTRIBUTION WIDTH 12.3 % (11.6-17.2); WHITE BLOOD COUNT 9.8 TH/MM3 (4.0-11.0)
[2017-06-04 06:26] LABS: BICARBONATE 29.6 MEQ/L (21.0-32.0)
[2017-06-04 06:37] LABS: POTASSIUM 2.9 MEQ/L (3.5-5.1)
[2017-06-04 08:00] VITALS: BP 137/79; PULSE 47; RESP 16; TEMP 98.1; O2SAT 97
[2017-06-04] MEDS: DOCUSATE SODIUM 50 MG/SENNA 8.6 MG TAB PO SCH ×2 (08:07→21:09)
[2017-06-04] MEDS: ONDANSETRON HCL 4 MG/2 ML VIAL IV PUSH PRN ×3 (08:40→19:13)
[2017-06-04] MEDS: POTASSIUM CHLOR 20 MEQ PREMIX 100 ML IV SCH ×2 (08:42→21:12)
[2017-06-04] MEDS: PROMETHAZINE HCL 25 MG SUPP RECTAL PRN ×2 (11:20→22:15)
[2017-06-04 12:00] VITALS: BP 184/99; PULSE 43; RESP 18; TEMP 98.1; O2SAT 100
[2017-06-04 12:07] LABS: TRANSFERRIN 184 MG/DL (213-418); TRANSFERRIN IRON PROFILE 184 MG/DL (200-360)
[2017-06-04 12:10] LABS: FERRITIN 160 NG/ML (8-252)
[2017-06-04] MEDS ORDERED: cefTRIAXone INJ 1,000 MG in SODIUM CHLORIDE 0.9% INJ 100 ML IV SCH (13:00)
--- NOTE | 2017-06-04 13:44 | HHI.PR ---
Subjective Remarks Patient crawling on herself in bed crying, mother at the bedside She told me she has been nauseous and vomiting all night long, I also nurse she only saw vomiting one time, however potassium is low despite being on potassium iv fluid No blood in the vomit, patient had 2 time endoscopy in the past no history of peptic ulcer disease Significant history of marijuana abuse, I told the nurse to monitor any vomit episode if this vomiting continue to happen despite Zofran and Phenergan suppository will consult GI Objective Vitals Vital Signs Date Time Temp Pulse Resp B/P (MAP) Pulse Ox O2 Delivery O2 Flow Rate FiO2 06/04/17 12:00 98.1 43 18 184/99 (127) 100 06/04/17 08:00 98.1 47 16 137/79 (98) 97 06/04/17 00:00 100.1 70 16 139/90 (106) 98 06/03/17 20:00 98.9 60 16 142/87 (105) 95 06/03/17 16:22 98.4 51 16 158/94 (115) 99 06/03/17 14:18 16 06/03/17 14:04 55 16 154/99 (117) 98 I/O 06/03/17 06/03/17 06/03/17 06/04/17 06/04/17 06/04/17 07:00 15:00 23:00 07:00 15:00 23:00 Intake Total 1225 ml 531 ml 835 ml Output Total 3 ml 1 ml Balance 1225 ml 528 ml 834 ml Intake Oral 480 ml IV Total 1225 ml 531 ml 355 ml Emesis 3 ml 1 ml # Voids 2 Result Diagram: 06/04/1730 06/04/1730 Objective Remarks GENERAL: This is a well-nourished, well-developed patient, in minimal distress due to nausea and vomiting. SKIN: No rashes, warm and dry HEAD: Atraumatic. Normocephalic. EYES: Pupils equal round and reactive. Extraocular motions intact. No scleral icterus. ENT: Nose without bleeding, or drainage, Airway patent. NECK: Trachea midline. Supple CARDIOVASCULAR: Regular rate and rhythm without murmurs, gallops, or rubs. RESPIRATORY: Fair air entry bilaterally. No wheezes, rales, or rhonchi. GASTROINTESTINAL: Abdomen soft, non-tender, nondistended. Positive bowel sounds MUSCULOSKELETAL: Extremities without clubbing, cyanosis, or edema. Pedal pulses appreciated NEUROLOGICAL: Awake and alert. Moves all extremity. Normal speech.no focal neurological deficit A/P Assessment and Plan 31 years old female admitted with Refractory intractable nausea and vomiting Abdominal discomfort periumbilical UTI with positive calcium oxalate Anemia hemoglobin dropped from 13-11 after hydration> check iron panel Hypokalemia possibly due to vomiting> replace as needed Elevated blood pressure Marijuana abuse DVT prophylaxis Plan: 06/04: Nausea vomiting still not improving, continue monitoring electrolytes and correct, if symptoms not improving consider consulting GI In light of unremarkable CT scan 4 days ago, I would think most likely the symptoms related to marijuana, however will monitor today will check CBC in a.m. , patient had cholecystectomy before, very unlikely appendicitis physical exam is negative. Anti-emetics and iv fluid Vasotec for elevated blood pressure She is on Rocephin for UTI Extensive counseling for marijuana abstinence DVT prophylaxis with ambulation and a SCD Angel Duran MD Jun 04, 2017 13:44
[2017-06-04] MEDS ORDERED: LORazepam 2 MG/ML VIAL IM ONE (15:15)
[2017-06-04 16:00] VITALS: BP 183/101; PULSE 44; RESP 20; TEMP 97.1; O2SAT 96
[2017-06-04 20:00] VITALS: BP 179/88; PULSE 43; RESP 18; TEMP 97.3; O2SAT 99
[2017-06-04] MEDS ORDERED: POTASSIUM CHLOR 20 MEQ PREMIX 100 ML IV ONE (20:30)
[2017-06-05] VITALS (8 sets, daily range): BP systolic 121–193; BP diastolic 77–103; PULSE 42–93; RESP 16–20; TEMP 97.5–98.8; O2SAT 91–98
[2017-06-05] MEDS: ONDANSETRON HCL 4 MG/2 ML VIAL IV PUSH PRN ×2 (02:13→08:50)
[2017-06-05] MEDS: PROMETHAZINE HCL 25 MG SUPP RECTAL PRN ×2 (04:14→11:33)
[2017-06-05] MEDS: NS + KCL 20 MEQ INJ 1,000 ML IV SCH (04:15)
[2017-06-05] MEDS ORDERED: MORPHINE SULFATE 2 MG/ML INJ IV PUSH ONE (04:30)
[2017-06-05] MEDS: POTASSIUM CHLOR 20 MEQ PREMIX 100 ML IV SCH ×2 (04:44→06:31)
[2017-06-05] MEDS ORDERED: DIATRIZOATE MEGLUM/DIATRIZOATE SOD 9 ML CUP PO ONE (05:15)
[2017-06-05] MEDS ORDERED: ENALAPRILAT 2.5 MG/2 ML VIAL IV PUSH PRN (06:00)
[2017-06-05 07:00] LABS: BETA HCG QUANT LESS THAN 1 MIU/ML (0-5)
[2017-06-05] MEDS ORDERED: IOHEXOL 350 MG/ML 10 ML VIAL (for RAD DIAG) IVCONTRAST ONE (07:54)
--- NOTE | 2017-06-05 08:00 | RADRPT ---
EXAM DATE/TIME: 06/05/2017 07:27 [facility] COMPARISON: CT BRAIN W/O CONTRAST, October 21, 2014, 16:30. INDICATIONS : Headache. RADIATION DOSE: 61.42 CTDIvol (mGy) MEDICAL HISTORY : Gastroesophageal reflux disease. SURGICAL HISTORY : Cholecystectomy. section. ENCOUNTER: Initial ACUITY: 1 week PAIN SCALE: 6/10 LOCATION: cranial TECHNIQUE: Multiple contiguous axial images were obtained of the head. Using automated exposure control and adj ustment of the mA and/or kV according to patient size, radiation dose was kept as low as reasonably a chievable to obtain optimal diagnostic quality images. DICOM format image data is available electro nically for review and comparison. FINDINGS: CEREBRUM: The ventricles are normal for age. No evidence of midline shift, mass lesion, hemorrhage or acute in farction. No extra-axial fluid collections are seen. POSTERIOR FOSSA: The cerebellum and brainstem are intact. The 4th ventricle is midline. The cerebellopontine angle i s unremarkable. EXTRACRANIAL: The visualized portion of the orbits is intact. SKULL: The calvaria is intact. No evidence of skull fracture. CONCLUSION: Negative exam. No change from prior. Marty Philippe MD on June 05, 2017 at 7:58 Board Certified Radiologist. This report was verified electronically.
--- NOTE | 2017-06-05 08:29 | RADRPT ---
EXAM DATE/TIME: 06/05/2017 07:33 [facility] COMPARISON: CT ABDOMEN & PELVIS W CONTRAST, May 30, 2017, 10:58. INDICATIONS : Worsening lower abdominal pain. Intractable vomiting. IV CONTRAST: 90 cc Omnipaque 350 (iohexol) IV ORAL CONTRAST: Partial prescribed oral contrast ingested. RADIATION DOSE: 13.91 CTDIvol (mGy) MEDICAL HISTORY : None SURGICAL HISTORY : Cholecystectomy. section. ENCOUNTER: [facility]ela ACUITY: 1 week PAIN SCALE: 6/10 LOCATION: lower quadrant TECHNIQUE: Volumetric scanning of the abdomen and pelvis was performed. Using automated exposure control and ad justment of the mA and/or kV according to patient size, radiation dose was kept as low as reasonably achievable to obtain optimal diagnostic quality images. DICOM format image data is available electro nically for review and comparison. FINDINGS: LOWER LUNGS: The visualized lower lungs are clear. LIVER: Homogeneous density without lesion. There is no dilation of the biliary tree. SPLEEN: Normal size without lesion. PANCREAS: Within normal limits. KIDNEYS: Normal in size and shape. A 1.3 cm mildly hyperdense nodule is identified in the upper pole of the ri ght kidney. Kidneys are otherwise unremarkable. ADRENAL GLANDS: Within normal limits. VASCULAR: There is no aortic aneurysm. BOWEL/MESENTERY: Several loops of proximal small bowel demonstrate mild wall thickening. There is no evidence of leticia- intestinal inflammatory disease. Increasing fluid accumulation is seen in the colon which is otherwis e unremarkable. The appendix appears normal. There is no evidence of free fluid or free air. ABDOMINAL WALL: Within normal limits. RETROPERITONEUM: There is no lymphadenopathy. BLADDER: No wall thickening or mass. REPRODUCTIVE: IUD remains in stable position. Within normal limits. INGUINAL: There is no lymphadenopathy or hernia. MUSCULOSKELETAL: Within normal limits for patient age. CONCLUSION: 1. Mildly thickened loops of small bowel which may or present enteritis. 2. No evidence of significant ileus, or free air or abnormal fluid collections. 3. 1.3 cm mildly dense nodule upper pole right kidney. Further evaluation with MRI should be consider ed. 4. Stable IUD 5. Status post cholecystectomy. Nigel Suazo MD on June 05, 2017 at 8:20 Board Certified Radiologist. This report was verified electronically.
[2017-06-05] MEDS: DOCUSATE SODIUM 50 MG/SENNA 8.6 MG TAB PO SCH ×2 (08:50→20:57)
--- NOTE | 2017-06-05 12:20 | HHI.PR ---
Subjective Remarks patient seen in follow up for intractable N/V better today after IV morphine, enteritis on CT GI consult pending Objective Vitals Vital Signs Date Time Temp Pulse Resp B/P (MAP) Pulse Ox O2 Delivery O2 Flow Rate FiO2 06/05/17 08:00 97.5 46 18 193/103 (133) 91 06/05/17 05:25 42 180/98 (125) Automatic Cuff 06/05/17 05:20 98.8 93 20 190/101 (130) 98 06/05/17 00:00 98.2 52 18 121/77 (92) 98 06/04/17 20:00 97.3 43 18 179/88 (118) 99 06/04/17 16:00 97.1 44 20 183/101 (128) 96 I/O 06/04/17 06/04/17 06/04/17 06/05/17 06/05/17 06/05/17 06:59 14:59 22:59 06:59 14:59 22:59 Intake Total 1038 ml 100 ml 775 ml 1686 ml Output Total 4 ml 900 ml 450 ml Balance 1034 ml 100 ml -125 ml 1236 ml Intake Oral 480 ml 480 ml IV Total 558 ml 100 ml 775 ml 1206 ml Emesis 4 ml 900 ml 450 ml # Voids 2 4 4 # Bowel Movements 1 Result Diagram: 06/04/17 0530 06/04/17 0530 Imaging Last Impressions Head CT 06/05/17 0000 Signed Impressions: Service Date/Time: Monday, June 05, 2017 07:27 - CONCLUSION: Negative exam. No change from prior. Marty Philippe MD Abdomen/Pelvis CT 06/05/17 0000 Signed Impressions: Service Date/Time: Monday, June 05, 2017 07:33 - CONCLUSION: 1. Mildly thickened loops of small bowel which may or present enteritis. 2. No evidence of significant ileus, or free air or abnormal fluid collections. 3. 1.3 cm mildly dense nodule upper pole right kidney. Further evaluation with MRI should be considered. 4. Stable IUD 5. Status post cholecystectomy. Nigel Suazo MD Objective Remarks GENERAL: This is a well-nourished, well-developed patient, in no apparent distress. CARDIOVASCULAR: Regular rate and rhythm without murmurs, gallops, or rubs. RESPIRATORY: Clear to auscultation. Breath sounds equal bilaterally. No wheezes , rales, or rhonchi. GASTROINTESTINAL: Abdomen soft, non-tender, nondistended. Normal active bowel sounds MUSCULOSKELETAL: Extremities without clubbing, cyanosis, or edema. NEURO: Alert & Oriented x4 to person, place, time, situation. Moves all ext x4 A/P Problem List: (1) Intractable nausea and vomiting ICD Code: R11.2 - Nausea with vomiting, unspecified Status: Acute Plan: may be due to THC use Phenergan scheduled Ativan x1 Enteritis on repeat CT, no stool so not able to check ST samples Prefers Morphine, would avoid due to worsening of Nausea, Rx toradol prn add PPI Gi consulted, may need endoscopy Discharge Planning pending n/v progress, gi eval pending? may need endoscopy Marina Collier MD Jun 05, 2017 12:20
[2017-06-05 12:39] LABS: POTASSIUM 3.4 MEQ/L (3.5-5.1)
[2017-06-05 12:42] LABS: BICARBONATE 27.9 MEQ/L (21.0-32.0); MAGNESIUM 2.1 MG/DL (1.5-2.5)
[2017-06-05] MEDS ORDERED: LORazepam 2 MG/ML VIAL IV PUSH ONE (13:00)
[2017-06-05] MEDS: PROMETHAZINE HCL 25 MG TAB PO SCH ×2 (13:00→19:00)
[2017-06-05] MEDS ORDERED: PANTOPRAZOLE SOD 40 MG DELAYED RELEASE TAB PO SCH (13:00)
[2017-06-05] MEDS: KETOROLAC TROMETHAMINE 60 MG/2 ML (IM) VIAL IM PRN (13:53)
[2017-06-05] MEDS ORDERED: PANTOPRAZOLE SODIUM 40 MG VIAL IV PUSH SCH (16:00)
[2017-06-05] MEDS ORDERED: PROCHLORPERAZINE INJ 10 MG/2 ML VIAL IV PUSH ONE (16:00)
[2017-06-05] MEDS ORDERED: PROMETHAZINE HCL 25 MG SUPP RECTAL PRN (16:00)
--- NOTE | 2017-06-05 17:34 | MB ---
cc: BHAVANA COLUNGA M.D. DATE OF CONSULTATION: 06/05/2017 REFERRING PHYSICIAN: Roger Ortiz MD. REASON FOR CONSULTATION: Persistent nausea, vomiting and abdominal discomfort. HISTORY OF PRESENT ILLNESS: Miss Magdaleno has had multiple admissions to the hospital as well as office visits for nausea, vomiting and abdominal discomfort. She was seen our office about a year ago. She has had two endoscopies in the last year essentially have been unremarkable. Initial CT scan here showed minimal enteritis but no other symptoms she says she is not having diarrhea, recently she still very nauseous but wanting to eat. There is no hematemesis or hematochezia. PAST MEDICAL HISTORY Multiple episodes for nausea, vomiting, abdominal pain. FAMILY HISTORY: Family history is noncontributory. SOCIAL HISTORY The patient is a smoker and smokes marijuana also drinks occasional alcohol. PAST SURGICAL HISTORY None. PHYSICAL EXAMINATION: IN GENERAL: Physical examination reveals a well-nourished lady in no apparent distress. VITAL SIGNS: Stable. HEAD/NECK: examination anicteric sclerae. CHEST: Bilateral air entry with rales. ABDOMEN: Abdomen is soft, nontender. No hepatosplenomegaly. Bowel sounds are present. CENTRAL NERVOUS SYSTEM: Exam is nonfocal. RECTAL EXAMINATION: Exam deferred at this time. LABORATORY FINDINGS: labs reveal hemoglobin of 11.1, total bilirubin 0.4, creatinine 0.42, lipase 160. CT ABDOMEN Pelvis reveals some enteritis. IMPRESSION Recurrent persistent nausea, vomiting, abdominal discomfort. RECOMMENDATIONS 1. Previous workup has been unremarkable. She is status post cholecystectomy. I would recommend a gastric emptying scan. 2. The patient has had previous endoscopy which is unremarkable at this time. 3. I will advance diet as tolerated. 4. Will follow with you. Thank you for this referral. This has been discussed with the patient, the nurse and her mother at the bedside. MD LENARD Pacheco/primitivo /4:04 PM /5:27 PM
[2017-06-06] VITALS: BP 159/86; PULSE 43; RESP 18; TEMP 97.2; O2SAT 98
[2017-06-06] MEDS: PROMETHAZINE HCL 25 MG TAB PO SCH ×3 (01:35→12:14)
[2017-06-06 04:00] VITALS: BP 168/82; PULSE 49; RESP 18; TEMP 97.6; O2SAT 97
[2017-06-06 08:00] VITALS: BP 204/109; PULSE 52; RESP 16; TEMP 98.9; O2SAT 96
[2017-06-06] MEDS: DOCUSATE SODIUM 50 MG/SENNA 8.6 MG TAB PO SCH (09:00)
--- NOTE | 2017-06-06 11:40 | RADRPT ---
EXAM DATE/TIME: 06/06/2017 08:42 [facility] COMPARISON: No previous studies available for comparison. INDICATIONS : Intractable nausea and vomiting. DOSE: 1 mCi Tc99m Sulfur Colloid Labeled Whole egg PO MEDICATONS: 1.) 5 mg Reglan IV at minutes IMAGIN hrs MEDICAL HISTORY : Gastroesophageal reflux disease. SURGICAL HISTORY : Cholecystectomy. ENCOUNTER: Initial ACUITY: 2 days PAIN SCALE: 0/10 LOCATION: Abdomen. TECHNIQUE: Following the oral ingestion of radiotracer-labeled meal, dynamic sequential images in the IRISH projec tion were acquired with simultaneous computer acquisition. The data set was decay-corrected. FINDINGS: There is very limited gastric emptying 110 minutes no response to Reglan. CONCLUSION: Very poor gastric emptying with no response to Reglan. Polo Back MD FACR on June 06, 2017 at 11:38 Board Certified Radiologist. This report was verified electronically.
[2017-06-06 12:00] VITALS: BP 130/75; PULSE 54; RESP 16; TEMP 99.4; O2SAT 96
[2017-06-06] MEDS: KETOROLAC TROMETHAMINE 60 MG/2 ML (IM) VIAL IM PRN (12:15)
[2017-06-06] MEDS ORDERED: OMEP20TA PO (12:45)
[2017-06-06] MEDS ORDERED: REGL10TA5 PO (12:45)
--- NOTE | 2017-06-06 12:46 | HHI.PR ---
Subjective Remarks Patient seen today in follow-up for vomiting, gastric emptying study consistent with gastroparesis Patient is tolerating food today. Decreased pain and bloating Objective Vitals Vital Signs Date Time Temp Pulse Resp B/P (MAP) Pulse Ox O2 Delivery O2 Flow Rate FiO2 06/06/17 12:00 99.4 54 16 130/75 (93) 96 06/06/17 08:00 98.9 52 16 204/109 (140) 96 06/06/17 04:00 97.6 49 18 168/82 (110) 97 06/06/17 00:00 97.2 43 18 159/86 (110) 98 06/05/17 20:00 98.7 86 20 121/85 (97) 94 06/05/17 17:13 18 06/05/17 16:00 98.5 46 18 128/78 (95) 95 I/O 06/05/17 06/05/17 06/05/17 06/06/17 06/06/17 06/06/17 07:00 15:00 23:00 07:00 15:00 23:00 Intake Total 1586 ml 100 ml 675 ml 0 ml Output Total 450 ml Balance 1136 ml 100 ml 675 ml 0 ml Intake Oral 480 ml 0 ml 0 ml IV Total 1106 ml 100 ml 675 ml Emesis 450 ml # Voids 4 4 2 # Bowel Movements 1 Result Diagram: 06/04/17 0530 06/05/17 1215 Objective Remarks GENERAL: This is a well-nourished, well-developed patient, in no apparent distress. CARDIOVASCULAR: Regular rate and rhythm without murmurs, gallops, or rubs. RESPIRATORY: Clear to auscultation. Breath sounds equal bilaterally. No wheezes , rales, or rhonchi. GASTROINTESTINAL: Abdomen soft, non-tender, nondistended. Normal active bowel sounds MUSCULOSKELETAL: Extremities without clubbing, cyanosis, or edema. NEURO: Alert & Oriented x4 to person, place, time, situation. Moves all ext x4 A/P Problem List: (1) Intractable nausea and vomiting ICD Code: R11.2 - Nausea with vomiting, unspecified Status: Acute Plan: Likely with gastroparesis, idiopathic at this point although patient has a history of prolonged exposure to THC Continue with PPI, previous endoscopy unremarkable Diet recommended to be low fiber and low fat with small meals d/w patient who would like to go home Discharge Planning [place] home Marina Collier MD Jun 06, 2017 12:46
--- NOTE | 2017-06-06 12:49 | HHI.DCPOC ---
Discharge Care Plan Diagnosis: (1) Gastroparesis Goals to Promote Your Health * To prevent worsening of your condition and complications * To maintain your health at the optimal level Directions to Meet Your Goals Take your medications as prescribed Follow your dietary instruction Follow activity as directed Keep your appointments as scheduled Take your immunizations and boosters as scheduled If your symptoms worsen call your PCP, if no PCP go to Urgent Care Center or Emergency Room Smoking is Dangerous to Your Health. Avoid second hand smoke Call the 24-hour hour crisis hotline for domestic abuse at Marina Collier MD Jun 06, 2017 12:49
--- NOTE | 2017-06-06 12:55 | HHI.DS ---
Discharge Summary Admission Date Jun 03, 2017 at 13:01 Discharge Date: Jun 06, 2017 Admitting Diagnosis intractable nausea vomiting, UTI (1) Intractable nausea and vomiting ICD Code: R11.2 - Nausea with vomiting, unspecified Status: Acute Procedures None Brief History - From Admission 31 years old female with history of marijuana abuse presented to the ED with complaint of nausea vomiting and abdominal pain, pain is around 6 out of 10 mostly periumbilical, get worse with nausea and vomiting. No alleviating factor , no transfer, no fever or chills, semisoft stool. No diarrhea patient has been seen earlier twice in the emergency room this week for the same symptoms had a CT scan of the abdomen 4 days ago which was unremarkable patient has a positive UA for calcium oxalate and UTI. However recent urine culture showed mixed gram-positive surjit. Patient had a history of but no other abdominal surgery. She usually use Zofran and Phenergan as needed. Reported using marijuana yesterday prior to developing those symptoms. CBC/BMP: 06/04/17 0530 06/05/17 1215 Significant Findings Laboratory Tests Test 06/04/17 05:30 06/05/17 12:15 Red Blood Count 3.93 MIL/MM3 (4.00-5.30) Hemoglobin 11.1 GM/DL (11.6-15.3) Hematocrit 34.3 % (35.0-46.0) Monocytes (%) (Auto) 10.3 % (0.0-8.0) Monocytes # (Auto) 1.0 TH/MM3 (0-0.9) Calcium Level 7.8 MG/DL (8.5-10.1) 7.7 MG/DL (8.5-10.1) Potassium Level 2.9 MEQ/L (3.5-5.1) 3.4 MEQ/L (3.5-5.1) Transferrin 184 MG/DL (213-418) Creatinine 0.42 MG/DL (0.50-1.00) Imaging Last Impressions Gastric Emptying Nuclear Medicine 06/06/17 0000 Signed Impressions: Service Date/Time: WedJune 06, 2017 08:42 - CONCLUSION: Very poor gastric emptying with no response to Reglan. Polo Back MD FACR Head CT 06/05/17 0000 Signed Impressions: Service Date/Time: Monday, June 05, 2017 07:27 - CONCLUSION: Negative exam. No change from prior. Marty Philippe MD Abdomen/Pelvis CT 06/05/17 0000 Signed Impressions: Service Date/Time: Monday, June 05, 2017 07:33 - CONCLUSION: 1. Mildly thickened loops of small bowel which may or present enteritis. 2. No evidence of significant ileus, or free air or abnormal fluid collections. 3. 1.3 cm mildly dense nodule upper pole right kidney. Further evaluation with MRI should be considered. 4. Stable IUD 5. Status post cholecystectomy. Nigel Suazo MD PE at Discharge GENERAL: This is a well-nourished, well-developed patient, in no apparent distress. CARDIOVASCULAR: Regular rate and rhythm without murmurs, gallops, or rubs. RESPIRATORY: Clear to auscultation. Breath sounds equal bilaterally. No wheezes , rales, or rhonchi. GASTROINTESTINAL: Abdomen soft, non-tender, nondistended. Normal active bowel sounds MUSCULOSKELETAL: Extremities without clubbing, cyanosis, or edema. NEURO: Alert & Oriented x4 to person, place, time, situation. Moves all ext x4 Pt update on day of discharge Please see daily progress note Hospital Course This patient is a 31-year-old female with multiple evaluations for abdominal discomfort and recurrent vomiting and nausea. Apparently she has gastroparesis as found on gastric emptying study today. Patient does smoke quite a bit of marijuana. I advised her to this as well as narcotics which will make her symptoms worse. She is also advised to eat small meals and a low fiber low-fat diet. She was seen by gastrology in consultation and recommended continuing her diet with supportive care. Urinalysis was initially abnormal and patient was started empirically on Cipro. Urine did show low colony-forming units and the patient's antibiotics were discontinued. She had no signs and symptoms of a urinary tract infection. She had some hypokalemia which required replacement Pt Condition on Discharge: Good Discharge Disposition: Discharge Home Discharge Time: <= 30 minutes Discharge Instructions DIET: Follow Instructions for: Low Fat Diet, Low Fiber Diet Additional Diet Instructions: small meals Activities you can perform: Regular-No Restrictions Follow up Referrals: Gastroenterology - 2 Weeks @ [facility] New Medications: Metoclopramide (Reglan) 10 Mg Tab 10 MG PO QID for Nausea/Vomiting, #120 TAB 0 Refills Continued Medications: Omeprazole (Omeprazole) 20 Mg Tab 20 MG PO DAILY for Dyspepsia, #30 TAB 0 Refills (This prescription has been renewed) Ondansetron Odt (Zofran Odt) 4 Mg Tab 4 MG SL Q6HR PRN for Nausea/Vomiting, #7 TAB 0 Refills Discontinued Medications: Ciprofloxacin (Cipro) 500 Mg Tab 500 MG PO BID for Infection for 7 Days, #14 TAB 0 Refills Promethazine (Phenergan) 25 Mg Tablet 25 MG PO Q6H PRN for NAUSEA OR VOMITING, #12 TAB 0 Refills Sucralfate (Sucralfate) 1 Gram Tab 1 GM PO TID for Duodenal ulcer, #90 TAB 0 Refills on empty stomach Marina Collier MD Jun 06, 2017 12:55
== END 2017-06-06 13:56 | disposition home or self-care (01) | DRG 392 ==
LOC: PHED 10:07 → OBSVTOIN 13:01 → PHEDA 13:01 → PH3A 14:20
PROVIDERS: ADMIT Hospitalist; ATTEND Hospitalist
DX: K31.84 Gastroparesis (principal); N39.0 Urinary tract infection, site not specified; K21.9 Gastro-esophageal reflux disease without esophagitis; F12.10 Cannabis abuse, uncomplicated; R03.0 Elevated blood-pressure reading, without diagnosis of hypertension; D64.9 Anemia, unspecified; E87.6 Hypokalemia; F12.188 Cannabis abuse with other cannabis-induced disorder; F17.200 Nicotine dependence, unspecified, uncomplicated; K52.9 Noninfective gastroenteritis and colitis, unspecified
CPT/HCPCS: 70450; 74177; 78264; 80048; 80053; 81001; 82728; 83540; 83550; 83690; 83735; 84466; 84702; 85025; 87086; A9541; C9113; J0696; J0780; J1200; J1885; J2060; J2270; J2405; J3480; J7030; Q0169; Q9963; Q9967